=== PATIENT | male | born 1965 | race Caucasian/White ===

== ENCOUNTER 2019-01-12 16:40 | Emergency (ER) | payer OTHER ==
[2019-01-12 17:24] LABS: Absolute Lymphocytes (CBC) 2.8 K/uL (0.7-4.9); Absolute Monocytes 1.1 K/uL (0.1-1.3); Absolute Neutrophil 6.7 K/uL (1.8-8.0); Basophils % 0.6 % (0-1.3); Eosinophils % 0.8 % (0-4.4); Hematocrit 46.4 % (39.6-49.0); Lymphocytes % 25.9 % (15.3-44.8); MPV 9.4 fL (7.6-11.3); Monocytes % 10.4 % (3.3-12.3); RBC Red Blood Cell Count 5.49 M/uL (4.33-5.43)
[2019-01-12] MEDS ORDERED: ONDANSETRON 4 MG/2 ML VIAL ONE (17:25)
[2019-01-12] MEDS ORDERED: MORPHINE 4 MG/ML SYR ONE (17:25)
[2019-01-12 17:29] LABS: Protime INR 0.94
[2019-01-12 17:43] LABS: ALT/SGPT 103 U/L (12-78); AST/SGOT 65 U/L (15-37); Albumin 3.6 g/dL (3.4-5.0); Alkaline Phosphatase 92 U/L (45-117); BUN Blood Urea Nitrogen 16 mg/dL (7-18); Bicarbonate 26 mmol/L (21-32); Bilirubin Direct < 0.1 mg/dL (0-0.2); Bilirubin Total 0.5 mg/dL (0.2-1.0); Glucose Level 104 mg/dL (74-106); Lipase 77 U/L (73-393); NT PRO-BNP 19 pg/mL (<125); Potassium 3.9 mmol/L (3.5-5.1); Protein, Total 7.6 g/dL (6.4-8.2); Sodium Level 139 mmol/L (136-145); Troponin (Emerg Dept Use Only) < 0.02 ng/mL (0.0-0.045)
--- NOTE | 2019-01-12 19:09 | RAD REPORT ---
EXAM DESCRIPTION: Gumaro Single View01/12/2019 5:14 pm CLINICAL HISTORY: Chest pain COMPARISON: none FINDINGS: Left basilar calcified granuloma. The right lung appears clear of acute infiltrate. The heart is normal size IMPRESSION: No acute abnormalities displayed
--- NOTE | 2019-01-12 19:22 | RAD REPORT ---
EXAM DESCRIPTION: CT - Abdomen Pelvis W Contrast - 01/12/2019 6:59 pm CLINICAL HISTORY: Abdominal pain. Left lower quadrant pain COMPARISON: None. TECHNIQUE: Computed axial tomography of the abdomen and pelvis was obtained. 100 cc Isovue-300 is ad ministered intravenously. Oral contrast was given. All CT scans are performed using dose optimization technique as appropriate and may include automated exposure control or mA/KV adjustment according to patient size. FINDINGS: The liver, pancreas, adrenals and kidneys appear unremarkable. Splenic granulomata There is no evidence of diverticulitis Stranding is present within the fat of the left upper quadrant near the spleen. Small left inguinal hernia contains fat Gallstones are present. Gallbladder wall does not appear thickened IMPRESSION: Cholelithiasis without cholecystitis Mild to moderate stranding within the fat of the left upper quadrant may be secondary to an infarct. It is recommended that the patient have a followup left upper quadrant ultrasound in 1 month for re-e valuation
[2019-01-12] MEDS ORDERED: FENTANYL CITR 100 MCG/2 ML ONE (19:37)
--- NOTE | 2019-01-12 20:16 | EDPHYS ---
Physician Documentation [facility] Name: Fish Bustamante Age: 53 yrs Sex: Male : 1965 Arrival Date: 01/12/2019 Time: 16:43 Bed 20 Private MD: Fish Perez ED Physician Ivan Farley HPI: 01/12 17:05 This 53 yrs old Male presents to ER via Ambulatory with complaints of cp Abdominal Pain. 17:05 The patient presents with abdominal pain in the left upper quadrant, in the left lower cp quadrant. Onset: The symptoms/episode began/occurred 3 day(s) ago. The symptoms radiate to chest. Associated signs and symptoms: Pertinent positives: chest pain, Pertinent negatives: blood in stools, constipation, diarrhea, dysuria, fever, testicular pain, vomiting. Modifying factors: the symptoms are aggravated by palpation. Historical: - Allergies: 16:46 No Known Allergies; sv - PMHx: 16:46 None; sv - PSHx: 16:46 Appendectomy; sv - Immunization history:: Adult Immunizations up to date. - Social history:: Smoking status: Patient/guardian denies using tobacco. - Ebola Screening: : No symptoms or risks identified at this time. ROS: 17:10 Constitutional: Negative for body aches, chills, fever, poor PO intake. cp 17:10 Eyes: Negative for injury, pain, redness, and discharge. cp 17:10 ENT: Negative for drainage from ear(s), ear pain, sore throat, difficulty swallowing, difficulty handling secretions. 17:10 Cardiovascular: Positive for chest pain, of the left side of chest, Negative for edema, palpitations. 17:10 Respiratory: Negative for cough, shortness of breath, wheezing. 17:10 Abdomen/GI: Positive for abdominal pain, of the left upper quadrant and left lower quadrant, Negative for vomiting, diarrhea, constipation, abdominal distension, black/tarry stool, rectal bleeding. 17:10 Back: Negative for injury or acute deformity, pain at rest, pain with movement. 17:10 : Negative for urinary symptoms, testicular pain 17:10 Skin: Negative for diaphoresis, rash. 17:10 Neuro: Negative for altered mental status, dizziness, headache, syncope, weakness. 17:10 All other systems are negative. Exam: 17:15 Constitutional: The patient appears in no acute distress, alert, awake, cp non-diaphoretic, non-toxic, well developed, well nourished. 17:15 Head/Face: Normocephalic, atraumatic. Eyes: Pupils equal round and reactive to light, cp extra-ocular motions intact. Lids and lashes normal. Conjunctiva and sclera are non-icteric and not injected. Cornea within normal limits. Periorbital areas with no swelling, redness, or edema. ENT: Nares patent. No nasal discharge, no septal abnormalities noted. Tympanic membranes are normal and external auditory canals are clear. Oropharynx with no redness, swelling, or masses, exudates, or evidence of obstruction, uvula midline. Mucous membranes moist. Chest/axilla: Normal chest wall appearance and motion. Nontender with no deformity. No lesions are appreciated. 17:15 Cardiovascular: Rate: tachycardic, Rhythm: regular, Heart sounds: murmur, not appreciated, Edema: is not appreciated, JVD: is not appreciated. 17:15 Respiratory: the patient does not display signs of respiratory distress, Respirations: normal, no use of accessory muscles, no retractions, no splinting, no tachypnea, labored breathing, is not present, Breath sounds: are clear throughout, no decreased breath sounds, no stridor, no wheezing. 17:15 Abdomen/GI: Inspection: abdomen appears normal, Bowel sounds: active, all quadrants, Palpation: soft, in all quadrants, moderate abdominal tenderness, in the left upper quadrant and left lower quadrant, rebound tenderness, is not appreciated, voluntary guarding, is elicited in the left upper quadrant and left lower quadrant. 17:15 Back: pain, is absent, ROM is normal. 17:15 Skin: cellulitis, is not appreciated, no rash present. 20:14 Abdomen/GI: Inspection: abdomen appears normal, Bowel sounds: normal, in all quadrants, kb Palpation: soft, in all quadrants, mild abdominal tenderness, in the left lower quadrant, moderate abdominal tenderness, in the left upper quadrant. Vital Signs: 16:46 BP 144 / 93; Pulse 108; Resp 20; Temp 98.8; Pulse Ox 95% ; Weight 81.65 kg; Height 5 sv ft. 9 in. (175.26 cm); Pain 4/10; 17:00 BP 108 / 63; Pulse 89; Resp 18; Pulse Ox 99% on R/A; em 19:45 BP 129 / 75; Pulse 98; Resp 20; Pulse Ox 95% on R/A; ea 20:30 BP 130 / 68; Pulse 80; Resp 18; Pulse Ox 99% ; ea 16:46 Body Mass Index 26.58 (81.65 kg, 175.26 cm) sv MDM: 17:00 Patient medically screened. violette 17:00 Differential diagnosis: bowel obstruction, cholecystitis, Cholelithiasis, cp diverticulitis, gastritis, non-specific abd pain, pancreatitis, Ureterolithiasis, urinary tract infection, colitis. 18:48 Data reviewed: vital signs, nurses notes, lab test result(s), EKG. cp 20:01 ED course: D/w Dr. Olivo, confirmed the fat infarct in that region is a non-emergent kdr finding. Advised that patient could be safely discharged with follow-up as recommended by Dr. Farias. The patient is to return if his pain worsens or for any other concerns.. 20:14 Counseling: I had a detailed discussion with the patient and/or guardian regarding: the kb historical points, exam findings, and any diagnostic results supporting the discharge/admit diagnosis, lab results, radiology results, the need for outpatient follow up, a family practitioner, to return to the emergency department if symptoms worsen or persist or if there are any questions or concerns that arise at home. 20:14 ED course: Pt educated to follow up with PCP regarding fat infarct and to have follow kb up US in 1 month per radiologist recommendation. Pt to return for worsening symptoms. . 01/12 16:57 Order name: Basic Metabolic Panel; Complete Time: 18:45 cp 01/12 18:46 Interpretation: Normal except: CL 108; GFR 58. cp 01/12 16:57 Order name: CBC with Diff; Complete Time: 18:45 cp 01/12 18:46 Interpretation: Normal except: RBC 5.49. cp 01/12 16:57 Order name: LFT's; Complete Time: 18:45 cp 01/12 16:57 Order name: Magnesium; Complete Time: 18:45 cp 01/12 16:57 Order name: NT PRO-BNP; Complete Time: 18:45 cp 01/12 16:57 Order name: PT-INR; Complete Time: 18:45 cp 03/15 16:57 Order name: Troponin (emerg Dept Use Only); Complete Time: 18:45 cp 01/12 16:57 Order name: XRAY Chest (1 view); Complete Time: 19:10 cp 01/12 16:57 Order name: Lipase; Complete Time: 18:45 cp 01/12 16:57 Order name: CT Abd/Pelvis - W/Contrast: give oral contrast; Complete Time: 19:26 cp 01/12 16:57 Order name: EKG; Complete Time: 16:58 cp 01/12 16:57 Order name: Cardiac monitoring; Complete Time: 17:07 cp 01/12 16:57 Order name: EKG - Nurse/Tech; Complete Time: 17:07 cp 01/12 16:57 Order name: IV Saline Lock; Complete Time: 17:07 cp 01/12 16:57 Order name: Labs collected and sent; Complete Time: 17:07 cp 01/12 16:57 Order name: O2 Per Protocol; Complete Time: 17:07 cp 01/12 16:57 Order name: O2 Sat Monitoring; Complete Time: 17:07 cp Administered Medications: 17:15 Drug: morphine 4 mg Route: IVP; Site: right antecubital; aa5 19:15 Follow up: Response: No adverse reaction ea 17:15 Drug: Zofran 4 mg Route: IVP; Site: right antecubital; aa5 19:15 Follow up: Response: No adverse reaction ea 19:29 Drug: fentaNYL (PF) 50 mcg Route: IVP; Site: right antecubital; ea 20:00 Follow up: Response: No adverse reaction; Pain is decreased ea 20:32 Drug: Isabella (7.5 mg-325 mg) 1 tabs Route: PO; ea 20:34 Follow up: Response: Medication administered at discharge. ea Disposition: 23:35 Co-signature as Attending Physician, Ivan Farley MD I agree with the assessment and kdr plan of care. Disposition: 01/12/19 20:16 Discharged to Home. Impression: Generalized abdominal pain. - Condition is Stable. - Discharge Instructions: Abdominal Pain, Adult, [id number]. - Prescriptions for Tylenol- Codeine #3 300-30 mg Oral Tablet - take 1 tablet by ORAL route every 6 hours As needed; 15 tablet. - Medication Reconciliation Form, Thank You Letter, Antibiotic Education, Prescription Opioid Use form. - Follow up: Emergency Department; When: As needed; Reason: Worsening of condition. Follow up: Fish Perez MD; When: 2 - 3 days; Reason: Recheck today's complaints, Continuance of care, Re-evaluation by your physician. Signatures: Dispatcher [employer] EDMS Tavo Loeraistin, SEROLOGY TECHNICIAN-C SEROLOGY TECHNICIAN-Ckb Betzy Raza, RN RN Sree Ellison MD MD cha Rittger, Kevin, MD MD kdr Calderon, Audri RN RN aa5 Sree Adhikari PA PA cp Antunez, Elena, RN RN ea Corrections: (The following items were deleted from the chart) 20:50 20:16 01/12/2019 20:16 Discharged to Home. Impression: Generalized abdominal pain. ea Condition is Stable. Forms are Medication Reconciliation Form, Thank You Letter, Antibiotic Education, Prescription Opioid Use. Follow up: Emergency Department; When: As needed; Reason: Worsening of condition. Follow up: Fish Perez; When: 2 - 3 days; Reason: Recheck today's complaints, Continuance of care, Re-evaluation by your physician. kb
--- NOTE | 2019-01-12 20:16 | ER ---
Nurse's Notes [facility] Name: Fish Bustamante Age: 53 yrs Sex: Male : 1965 Arrival Date: 01/12/2019 Time: 16:43 Bed 20 Private MD: Fish Perez Diagnosis: Generalized abdominal pain Presentation: 01/12 16:45 Presenting complaint: Patient states: LLQ pain x 3 days, denies n/v/d. Transition of sv care: patient was not received from another setting of care. Onset of symptoms was January 09, 2019. Care prior to arrival: None. 16:45 Method Of Arrival: Ambulatory sv 16:45 Acuity: AZEEM 3 sv 17:00 Initial Sepsis Screen: Does the patient meet any 2 criteria? HR > 90 bpm. No. Patient's em initial sepsis screen is negative. Does the patient have a suspected source of infection? No. Patient's initial sepsis screen is negative. Historical: - Allergies: 16:46 No Known Allergies; sv - PMHx: 16:46 None; sv - PSHx: 16:46 Appendectomy; sv - Immunization history:: Adult Immunizations up to date. - Social history:: Smoking status: Patient/guardian denies using tobacco. - Ebola Screening: : No symptoms or risks identified at this time. Screenin:00 Abuse screen: Denies threats or abuse. Nutritional screening: No deficits noted. em Tuberculosis screening: No symptoms or risk factors identified. Fall Risk None identified. Assessment: 17:00 General: Appears in no apparent distress. comfortable, Behavior is calm, cooperative, em appropriate for age, Denies fever. Pain: Complains of pain in left upper quadrant Pain currently is 3 out of 10 on a pain scale. Quality of pain is described as pressure, Pain began 2-3 days ago. Neuro: Level of Consciousness is awake, alert, obeys commands, Oriented to person, place, time, situation. Cardiovascular: Capillary refill < 3 seconds Patient's skin is warm and dry. Respiratory: Airway is patent Respiratory effort is even, unlabored, Respiratory pattern is regular, symmetrical. GI: Abdomen is round Bowel sounds present X 4 quads. Guarding noted X 4 quads. Patient currently denies diarrhea, nausea, vomiting. Derm: Skin is intact, is healthy with good turgor, Skin is pink, warm \T\ dry. Musculoskeletal: Range of motion: intact in all extremities. 17:00 Reassessment: I agree with assessment completed by José Miguel Merrill LVN . aa5 18:00 Reassessment: Patient appears in no apparent distress at this time. Patient and/or em family updated on plan of care and expected duration. Pain level reassessed. Patient is alert, oriented x 3, equal unlabored respirations, skin warm/dry/pink. rates pain 2/10 Patient states feeling better. 19:15 General: Appears uncomfortable, Behavior is calm, cooperative, appropriate for age. ea Pain: Complains of pain in abdomen. Neuro: Level of Consciousness is awake, alert, obeys commands, Oriented to person, place, time, situation. Cardiovascular: Patient's skin is warm and dry. Respiratory: Airway is patent Respiratory effort is even, unlabored, Respiratory pattern is regular, symmetrical. GI: Abdomen is round Guarding noted X 4 quads. Derm: Skin is intact, Skin is pink, warm \T\ dry. 20:45 Reassessment: Patient and/or family updated on plan of care and expected duration. Pain ea level reassessed. Patient is alert, oriented x 3, equal unlabored respirations, skin warm/dry/pink. Discharge instruction given to patient, verbalized the understanding of instruction. Vital Signs: 16:46 BP 144 / 93; Pulse 108; Resp 20; Temp 98.8; Pulse Ox 95% ; Weight 81.65 kg; Height 5 sv ft. 9 in. (175.26 cm); Pain 4/10; 17:00 BP 108 / 63; Pulse 89; Resp 18; Pulse Ox 99% on R/A; em 19:45 BP 129 / 75; Pulse 98; Resp 20; Pulse Ox 95% on R/A; ea 20:30 BP 130 / 68; Pulse 80; Resp 18; Pulse Ox 99% ; ea 16:46 Body Mass Index 26.58 (81.65 kg, 175.26 cm) sv ED Course: 16:43 Patient arrived in ED. rg4 16:44 Fish Perez MD is Private Physician. rg4 16:46 Triage completed. sv 16:46 Arm band placed on. sv 16:49 [facility]. cp 16:49 Sree Danielle MD is Attending Physician. cp 16:49 Verna Loera FNP-C is PHCP. kb 17:00 Patient has correct armband on for positive identification. Placed in gown. Bed in low em position. Call light in reach. hospital monitor on. Pulse ox on. NIBP on. 17:03 José Miguel Merrill LVN is Primary Nurse. em 17:04 Oral contrast given. jg6 17:07 Initial lab(s) drawn, by ky, sent to lab. Inserted saline lock: 20 gauge in right ms antecubital area, using aseptic technique. Blood collected. 17:12 EKG done, by technical support consultant. reviewed by Sree LYNCH. sm3 17:15 XRAY Chest (1 view) In Process Unspecified. EDMS 18:[address] via wheelchair. jg6 18:50 PHCP role handed off by Sree Adhikari PA kb 18:50 Verna Loera FNP-C is PHCP. kb 18:59 CT completed. Patient tolerated procedure well. Patient moved back from CT. vm2 19:00 CT Abd/Pelvis - W/Contrast: give oral contrast In Process Unspecified. EDMS 19:56 Attending Physician role handed off by Sree Danielle MD kdr 19:56 Ivan Farley MD is Attending Physician. kdr 20:15 Fish Perez MD is Referral Physician. kb 20:35 No provider procedures requiring assistance completed. IV discontinued, intact, ea bleeding controlled, No redness/swelling at site. Pressure dressing applied. Administered Medications: 17:15 Drug: morphine 4 mg Route: IVP; Site: right antecubital; aa5 19:15 Follow up: Response: No adverse reaction ea 17:15 Drug: Zofran 4 mg Route: IVP; Site: right antecubital; aa5 19:15 Follow up: Response: No adverse reaction ea 19:29 Drug: fentaNYL (PF) 50 mcg Route: IVP; Site: right antecubital; ea 20:00 Follow up: Response: No adverse reaction; Pain is decreased ea 20:32 Drug: Wallace (7.5 mg-325 mg) 1 tabs Route: PO; ea 20:34 Follow up: Response: Medication administered at discharge. ea Outcome: 20:16 Discharge ordered by . kb 20:37 Discharged to home ambulatory, with significant other. ea 20:37 Condition: improved 20:37 Discharge instructions given to patient, Instructed on discharge instructions, follow up and referral plans. medication usage, Demonstrated understanding of instructions, follow-up care, medications, Prescriptions given X 1. 20:50 Patient left the ED. ea Signatures: Dispatcher [employer] EDMS Verna Loera, INSTRUMENT FITTER-C INSTRUMENT FITTER-CkBetzy Page, RN RN Ivan Jeong MD MD kdr Munoz, Edgar, CONVENTION SERVICES DIRECTOR CONVENTION SERVICES DIRECTOR Billie Vasquez ms Metz, Eve, RN RN [email or web address] Sree Adhikari PA PA cp Garcia, Rubi rg4 Niurka Palmer2 Sindy Rader RN RN ea Montes, Shakira 3 Hawa Richards6
[2019-01-12] MEDS ORDERED: HYDROCODONE/APAP 7.5/325 MG TAB ONE (20:43)
--- NOTE | 2019-01-13 09:23 | EKG ---
Test Date: 2019-01-12 Test Time: 17:02:20 Senior Hris Analyst: KIM MEASUREMENT RESULTS: Intervals: Rate: 99 AZ: 138 QRSD: 84 QT: 328 QTc: 420 Heth: P: 72 AZ: 138 QRS: 82 T: 45 INTERPRETIVE STATEMENTS: Normal sinus rhythm Possible Left atrial enlargement Borderline ECG No previous ECG available for comparison Electronically Signed On 01-13-19 09:21:30 CDT by Riccardo Burgos
== END 2019-01-12 20:50 | disposition home or self-care (01) ==
LOC: ER 16:40
DX: R10.84 Generalized abdominal pain (principal)
CPT/HCPCS: 36415; 71045; 74177; 80048; 80076; 83690; 83735; 83880; 84484; 85025; 85610; 93005; 96374; 96375; 99285; J2405; J3010; Q9967

== ENCOUNTER 2024-04-28 13:07 | Inpatient (IN) | payer OTHER ==
[2024-04-28 13:56] LABS: Absolute Lymphocytes (CBC) 1.4 K/uL (0.7-4.9); Absolute Monocytes 0.8 K/uL (0.1-1.3); Absolute Neutrophil 5.7 K/uL (1.8-8.0); Basophils % 0.5 % (0-1.3); Eosinophils % 0.3 % (0-4.4); Hematocrit 47.2 % (39.6-49.0); Hemoglobin 15.7 g/dL (13.6-17.9); Lymphocytes % 17.4 % (15.3-44.8); MCH 28.9 pg (27.0-35.0); MCHC 33.3 g/dL (32.0-36.0); MCV 86.8 fL (80-100); MPV 8.5 fL (7.6-11.3); Monocytes % 9.9 % (3.3-12.3); Neutrophils % 71.9 % (41.7-73.7); Nucleated Red Blood Cells % 0.3 % (0-0); Platelets 197 thou/uL (152-406); RBC Red Blood Cell Count 5.44 M/uL (4.33-5.43); Red Cell Distribution Width 14.6 % (12.1-15.2)
[2024-04-28 14:00] LABS: PT Prothrombin Time 12.4 SECONDS (9.4-12.5); Protime INR 1.13
[2024-04-28 14:13] LABS: Albumin 3.5 g/dL (3.4-5.0); Anion Gap 9.4 mEq/L (5.0-15.0); Bilirubin Direct 0.2 mg/dL (0-0.2); Bilirubin Indirect, Calculated 0.4 mg/dL (0.2-0.8); Bilirubin Total 0.6 mg/dL (0.2-1.0); Globulin 3.5 g/dL (2.3-3.5); Magnesium 2.2 mg/dL (1.6-2.4); Potassium 3.4 mEq/L (3.5-5.1)
[2024-04-28 14:18] LABS: Troponin High Sensitivity 315.4 pg/mL (<58.9)
--- NOTE | 2024-04-28 14:18 | RAD REPORT ---
EXAM DESCRIPTION: Gumaro Single View04/28/2024 1:50 pm CLINICAL HISTORY: CHEST PAIN COMPARISON: Chest Single View dated 01/12/2019 TECHNIQUE: Portable AP view of the chest. FINDINGS: The lungs are clear. 9 mm left central pulmonary opacity is stable. No pneumothorax or ef fusion. The cardiomediastinal contours are unremarkable. IMPRESSION: No acute cardiopulmonary process. Stable left central 9 mm pulmonary opacity, may repre sent a calcified granuloma.
[2024-04-28] MEDS ORDERED: ASPIRIN 81 MG CHEWABLE TABLET ONE (15:01)
--- NOTE | 2024-04-28 15:49 | RAD REPORT ---
EXAM DESCRIPTION: CT - Head Brain Wo Cont - 04/28/2024 2:56 pm CLINICAL HISTORY: Headache COMPARISON: Angio Aorta For Dissection dated 04/28/2024 TECHNIQUE: Noncontrast head CT images were obtained without IV contrast. Multiplanar reformats were generated and reviewed. All CT scans are performed using dose optimization technique as appropriate and may include automated exposure control or mA/KV adjustment according to patient size. FINDINGS: No intracranial hemorrhage, mass, or edema. Midline structures are unremarkable. Normal ventricular caliber for age. Rodriguez-white matter differentiation is preserved, without evidence of acute infarct. No abnormal extra- axial fluid collections. Mastoid air cells are well aerated. Right maxillary sinus wall thickening suggesting sequelae of yard conductor renetta sinusitis, with an air-fluid level. No acute bony findings. IMPRESSION: No evidence of an acute intracranial process. Right maxillary sinus air-fluid level.
--- NOTE | 2024-04-28 16:07 | RAD REPORT ---
EXAM DESCRIPTION: CT - Angio Aorta For Dissection - 04/28/2024 3:04 pm CLINICAL HISTORY: CP, tachycardia;Dissection COMPARISON: Chest Single View dated 04/28/2024 TECHNIQUE: Thin axial CT images of the chest, abdomen, and pelvis were obtained during administratio n of mL Isovue 370 IV contrast. Sagittal and coronal reconstructions as well as maximal intensity pro jection reconstruction were generated and reviewed per an aortic angiography protocol. All CT scans are performed using dose optimization technique as appropriate and may include automated exposure control or mA/KV adjustment according to patient size. FINDINGS: Aorta is normal in diameter with no dissection or other acute aortic findings. The aorta i s normal in caliber throughout. Mild atherosclerotic plaque formation along the thoracic aorta. Moder ate to advanced mixed calcified and noncalcified atherosclerotic plaque formation along the infrarena l abdominal aorta with luminal irregularity. Long segment of non opacification and caliber attenuatio n involving the origin of the left external iliac artery, to its distal aspect, just proximal to the level of the inguinal ligament. The left iliofemoral junction and visualized proximal femoral arterie s are patent. Pulmonary arteries are normal as well. No mass or infiltrate in the lung parenchyma. Densely calcified left upper lobe anteriorly situated 1 cm granuloma. Mild centrilobular emphysematous changes. No pleural thickening, pleural effusion or p neumothorax. No abnormal mediastinal or hilar mass or lymphadenopathy seen. No chest wall mass or abnormal axillar y lymphadenopathy. Celiac axis and SMA show no suspicious findings. Renal arteries are patent with mild focal narrowing at their origins. XAVIER is patent although shows severe stenosis focally at its origin. Multiple cholesterol containing stones in the gallbladder. Small left inguinal hernia containing fat. Solid abdominal viscera and bowel show no other significant findings. No mass or abnormal lymphadeno hakeem. IMPRESSION: No acute abnormalities on CT angiogram of the aorta. Moderate to advanced atherosclerotic plaque along the infrarenal abdominal aorta with with luminal ir regularity. 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 Other incidental findings as above.
--- NOTE | 2024-04-28 16:32 | EDPHYS ---
Physician Documentation [facility] Name: Fish Bustamante Age: 59 yrs Sex: Male : 1965 Arrival Date: 04/28/2024 Time: 13:07 Bed 4 Private MD: ED Physician Guru Alvarez HPI: 04/28 13:34 This 59 yrs old Male presents to ER via Ambulatory with complaints of Blood Pressure sb4 Problem. 13:34 patient believes that his blood pressure has been spiking the past 6 weeks. he hasn't sb4 checked it but he states he can tell because his face gets red and he gets a headache. he denies any prior diagnosis of hypertension or taking any antihypertensives. he denies any chest pain or shortness of breath. Historical: - Allergies: 13:27 No Known Allergies; cm10 - Home Meds: 13:27 None [Active]; cm10 - PMHx: 13:27 Cancer- head; cm10 - PSHx: 13:27 Appendectomy; cm10 - Immunization history:: Adult Immunizations up to date. - Infectious Disease History:: Denies. - Social history:: Smoking status: Patient reports the use of cigarette tobacco products, denies chronic smoking, but will smoke occasionally. ROS: 13:34 Constitutional: Negative for fever, chills, and weight loss, sb4 13:34 All other systems are negative, Exam: 13:34 Head/Face: Normocephalic, atraumatic. Eyes: Extra-ocular motions intact. Periorbital sb4 areas with no swelling, redness, or edema. ENT: Mucous membranes moist. Respiratory: Lungs have equal breath sounds bilaterally, clear to auscultation and percussion. No rales, rhonchi or wheezes noted. No increased work of breathing, no retractions or nasal flaring. Abdomen/GI: Soft, non-tender, no distension. Skin: Warm, dry with normal turgor. Normal color with no rashes, no lesions, and no evidence of cellulitis. MS/ Extremity: Pulses equal, no cyanosis. Neurovascular intact. Full, normal range of motion. 13:34 Constitutional: The patient appears alert, awake, anxious, tearful 13:34 Cardiovascular: Rate: tachycardic, Rhythm: regular, Vital Signs: 13:25 BP 203 / 95; Pulse 135; Resp 18; Temp 99.1; Pulse Ox 96% on R/A; Weight 79.38 kg; cm10 Height 5 ft. 9 in. ; Pain 6/10; 14:04 BP 130 / 79; Pulse 112; Resp 19; Pulse Ox 98% on R/A; ld1 17:03 Pulse 100; Resp 17; Pulse Ox 98% on R/A; ld1 13:25 Body Mass Index 25.84 (79.38 kg, 175.26 cm) cm10 13:25 Pain Scale: Adult cm10 MDM: 13:17 Patient medically screened. sb4 16:30 Data reviewed: vital signs, nurses notes, lab test result(s), EKG, radiologic studies, sb4 and as a result, I will admit patient. Counseling: I had a detailed discussion with the patient and/or guardian regarding the historical points, exam findings, and any diagnostic results supporting the discharge/admit diagnosis, the presence of at least one elevated blood pressure reading (>120/80) during this emergency department visit, lab results, radiology results, the need for further work-up and treatment in the hospital. 04/28 13:33 Order name: Basic Metabolic Panel; Complete Time: 14:18 sb4 04/28 13:33 Order name: CBC with Diff; Complete Time: 14:02 sb4 04/28 13:33 Order name: LFT's; Complete Time: 14:18 sb4 04/28 13:33 Order name: Magnesium; Complete Time: 14:18 sb4 04/28 13:33 Order name: NT PRO-BNP; Complete Time: 14:18 sb4 04/28 13:33 Order name: PT-INR; Complete Time: 14:00 sb4 04/28 13:33 Order name: Troponin HS; Complete Time: 14:18 sb4 04/28 16:56 Order name: CBC with Automated Diff EDMS 04/28 16:56 Order name: CBC with Automated Diff EDMS 04/28 16:56 Order name: Comprehensive Metabolic Panel EDMS 04/28 16:56 Order name: Comprehensive Metabolic Panel EDMS 04/28 16:56 Order name: Lipid Profile EDMS 04/28 16:56 Order name: Lipid Profile EDMS 04/28 16:56 Order name: Magnesium EDMS 04/28 16:56 Order name: Magnesium EDMS 04/28 16:56 Order name: Phosphorus EDMS 04/28 16:56 Order name: Phosphorus EDMS 04/28 16:56 Order name: Troponin High Sensitivity EDMS 04/28 16:56 Order name: Troponin High Sensitivity EDMS 04/28 16:56 Order name: Troponin High Sensitivity EDMS 04/28 16:56 Order name: Troponin High Sensitivity EDMN 04/28 13:33 Order name: XRAY Chest (1 view); Complete Time: 14:18 sb4 04/28 14:20 Order name: CT Aorta for Dissection; Complete Time: 16:08 sb4 04/28 14:53 Order name: Head Brain Wo Cont; Complete Time: 15:55 EDMS 04/28 16:56 Order name: Echo with Doppler EDMS 04/28 16:56 Order name: Echo with Doppler EDMS 04/28 16:56 Order name: CONS Physician Consult EDMN 04/28 13:33 Order name: Cardiac monitoring; Complete Time: 13:39 sb4 04/28 13:33 Order name: EKG - Nurse/Tech; Complete Time: 13:36 sb4 04/28 13:33 Order name: IV Saline Lock; Complete Time: 14:04 sb4 04/28 13:33 Order name: Labs collected and sent; Complete Time: 14:04 sb4 04/28 13:33 Order name: O2 Per Protocol; Complete Time: 13:39 sb4 04/28 13:33 Order name: O2 Sat Monitoring; Complete Time: 13:39 sb4 EC:38 Rate is 130 beats/min. Rhythm is regular, Sinus tachycardia. TX interval is normal at sb4 128 msec. QRS interval is normal at 86 msec. QT interval is normal at 302 msec. No Q waves. T waves are Normal. Clinical impression: NSR w/ Non-specific ST/T Changes. Interpreted by me. Reviewed by me. Administered Medications: 15:19 Drug: Aspirin PO Chewable Tablet 324 mg PO once; 81 mg tablets x 4 Route: PO; ld1 17:03 Drug: Enoxaparin Sub-Q 1 mg/kg Sub-Q once Route: Sub-Q; Site: left upper arm; ld1 Disposition: 18:10 Co-signature as Attending Physician, Guru Alvarez MD I reviewed the patient's care rn provided by the Advanced Practice Provider and agree with the diagnosis and treatment plan. Disposition Summary: 04/28/24 16:31 Hospitalization Ordered Notes: Hospitalization Status: Inpatient Admission sb4 Provider: Antonella Carrasco4 Location: Telemetry/MedSurg (Inpatient) sb4 Condition: Fair sb4 Problem: new sb4 Symptoms: are unchanged sb4 Bed/Room Type: Standard sb4 Room Assignment: 208(04/28/24 17:04) eb Diagnosis - Subsequent non-ST elevation (NSTEMI) myocardial infarction sb4 Forms: - Medication Reconciliation Form sb4 - SBAR form sb4 - Leadership Thank You Letter sb4 Signatures: Dispatcher [employer] EDMS Guru Alvarez MD MD rn Gladis Dallas Lauren, RN RN ld1 Lynn Swann PA-C PAHernandez sb4 Beth Farmer RN RN cm10 Corrections: (The following items were deleted from the chart) 13:27 13:27 PMHx: None; cm10 cm10 13:27 13:27 PSHx: None; cm10 cm10 13:34 13:34 BASIC METABOLIC PANEL+C.LAB.BRZ ordered. EDMS EDMS 13:34 13:34 CBC+H.LAB.BRZ ordered. EDMS EDMS 13:34 13:34 HEPATIC FUNCTION+C.LAB.BRZ ordered. EDMS EDMS 13:34 13:34 MAGNESIUM+C.LAB.BRZ ordered. EDMS EDMS 13:34 13:34 PROBNP+C.LAB.BRZ ordered. EDMS EDMS 13:34 13:34 PROTIME (+INR)+COAG.LAB.BRZ ordered. EDMS EDMS 13:34 13:34 Troponin High Sensitivity+C.LAB.BRZ ordered. EDMS EDMS 13:34 13:34 Chest Single View+RAD.RAD.BRZ ordered. EDMS EDMS 17:04 16:31 sb4 eb
--- NOTE | 2024-04-28 16:32 | ER ---
Nurse's Notes [facility] Name: Fish Bustamante Age: 59 yrs Sex: Male : 1965 Arrival Date: 04/28/2024 Time: 13:07 Bed 4 Private MD: Diagnosis: Subsequent non-ST elevation (NSTEMI) myocardial infarction Presentation: 04/28 13:25 Chief complaint: Patient states: High blood pressure with headache, chest pain and cm10 shortness of breath onset 1.5 months ago and has been getting worse. Coronavirus screen: Client denies travel out of the [place] in the last 14 days. At this time, the client does not indicate any symptoms associated with coronavirus-19. Ebola Screen: Patient denies travel to an Ebola-affected area in the 21 days before illness onset. No symptoms or risks identified at this time. Initial Sepsis Screen: Does the patient meet any 2 criteria? HR > 90 bpm. Does the patient have a suspected source of infection? No. Patient's initial sepsis screen is negative. Risk Assessment: Do you want to hurt yourself or someone else? Patient reports no desire to harm self or others. Onset of symptoms is unknown. 13:25 Method Of Arrival: Ambulatory cm10 13:25 Acuity: AZEEM 2 cm10 Triage Assessment: 13:27 General: Appears in no apparent distress. comfortable, Behavior is calm, cooperative. cm10 Neuro: No deficits noted. Level of Consciousness is awake, alert, obeys commands, Oriented to person, place, time, situation, Appropriate for age. Respiratory: No deficits noted. Airway is patent Respiratory effort is even, unlabored, Respiratory pattern is regular, symmetrical. Historical: - Allergies: 13:27 No Known Allergies; cm10 - Home Meds: 13:27 None [Active]; cm10 - PMHx: 13:27 Cancer- head; cm10 - PSHx: 13:27 Appendectomy; cm10 - Immunization history:: Adult Immunizations up to date. - Infectious Disease History:: Denies. - Social history:: Smoking status: Patient reports the use of cigarette tobacco products, denies chronic smoking, but will smoke occasionally. Screenin:04 [facility] ED Fall Risk Assessment (Adult) History of falling in the last 3 months, ld1 including since admission No falls in past 3 months (0 pts) Confusion or Disorientation No (0 pts) Intoxicated or Sedated No (0 pts) Impaired Gait No (0 pts) Mobility Assist Device Used No (0 pt) Altered Elimination No (0 pt) Score/Fall Risk Level 0 - 2 = Low Risk. [facility] ED Fall Risk Assessment (Adult) Score/Fall Risk Level 0 - 2 = Low Risk Oriented to surroundings, Maintained a safe environment, Educated pt \T\ family on fall prevention, incl call for assistance when getting out of bed, Assessed \T\ reinforced patient's understanding of fall precautions, Provided non-skid footwear, Hourly rounding (assess needs \T\ fall precautionary measures) done, Used ambulatory aids as needed (educated on \T\ assisted with), Used gait belt as appropriate. [facility] ED Fall Risk Assessment (Adult) History of falling in the last 3 months, including since admission. Abuse screen: Denies threats or abuse. Denies injuries from another. Nutritional screening: No deficits noted. Tuberculosis screening: No symptoms or risk factors identified. Assessment: 14:04 General: Appears in no apparent distress. comfortable, Behavior is calm, cooperative, ld1 appropriate for age. Pain: Complains of pain in face Pain does not radiate. Pain currently is 5 out of 10 on a pain scale. at worst was 8 out of 10 on a pain scale. Quality of pain is described as sharp, throbbing, Pain began 2-3 days ago. Is intermittent. Neuro: Level of Consciousness is awake, alert, obeys commands, Oriented to person, place, time, situation. Cardiovascular: Capillary refill < 3 seconds Patient's skin is warm and dry. Respiratory: Airway is patent Respiratory effort is even, unlabored. GI: Abdomen is round non-distended. : No signs and/or symptoms were reported regarding the genitourinary system. EENT: No signs and/or symptoms were reported regarding the EENT system. Derm: No signs and/or symptoms reported regarding the dermatologic system. Musculoskeletal: No signs and/or symptoms reported regarding the musculoskeletal system. 14:46 Reassessment: Patient appears in no apparent distress at this time. No changes from ld1 previously documented assessment. Patient and/or family updated on plan of care and expected duration. Pain level reassessed. Patient is alert, oriented x 3, equal unlabored respirations, skin warm/dry/pink. 17:03 Reassessment: Patient appears in no apparent distress at this time. No changes from ld1 previously documented assessment. Patient and/or family updated on plan of care and expected duration. Pain level reassessed. Patient is alert, oriented x 3, equal unlabored respirations, skin warm/dry/pink. Vital Signs: 13:25 BP 203 / 95; Pulse 135; Resp 18; Temp 99.1; Pulse Ox 96% on R/A; Weight 79.38 kg; cm10 Height 5 ft. 9 in. ; Pain 6/10; 14:04 BP 130 / 79; Pulse 112; Resp 19; Pulse Ox 98% on R/A; ld1 17:03 Pulse 100; Resp 17; Pulse Ox 98% on R/A; ld1 13:25 Body Mass Index 25.84 (79.38 kg, 175.26 cm) cm10 13:25 Pain Scale: Adult cm10 ED Course: 13:10 Patient arrived in ED. ts1 13:13 Lynn Swann [facility]-C [facility]. sb4 13:13 Guru Alvarez MD is Attending Physician. sb4 13:27 Triage completed. cm10 13:27 Arm band placed on Patient placed in an exam room, on a stretcher, on staff registered nurse, cm10 on pulse oximetry. EKG completed in triage. Results shown to MD. 13:31 Patient has correct armband on for positive identification. Bed in low position. Call cm10 light in reach. Side rails up X 1. Client placed on continuous cardiac and pulse oximetry monitoring. NIBP monitoring applied. cdl company driver on. 13:31 EKG done, by ED staff, reviewed by Lynn Swann PA-C. cm10 13:40 Sheila Obrien, HARRISON is Primary Nurse. ld1 13:51 XRAY Chest (1 view) In Process Unspecified. EDMS 14:04 Inserted saline lock: 20 gauge in left forearm, using aseptic technique. Blood ld1 collected. 14:04 No provider procedures requiring assistance completed. ld1 14:57 Head Brain Wo Cont In Process Unspecified. EDMS 15:06 CT Aorta for Dissection In Process Unspecified. EDMS 16:31 Antonella Carrasco MD is Hospitalizing Provider. sb4 17:44 Patient admitted, IV remains in place. ld1 Administered Medications: 15:19 Drug: Aspirin PO Chewable Tablet 324 mg PO once; 81 mg tablets x 4 Route: PO; ld1 17:03 Drug: Enoxaparin Sub-Q 1 mg/kg Sub-Q once Route: Sub-Q; Site: left upper arm; ld1 Medication: 14:04 VIS not applicable for this client. ld1 Outcome: 16:31 Decision to Hospitalize by Provider. sb4 17:44 Admitted to Med/surg accompanied by tech, via wheelchair, ld1 17:44 Condition: stable 17:44 Instructed on the need for admit, 17:44 Patient left the ED. ld1 Signatures: Dispatcher [employer] EDMS Sheila Obrien RN RN ld1 Lynn Swann PASharonC PAHernandez sb4 Janneth Patino PAS PAS ts1 Beth Farmer RN RN cm10 Corrections: (The following items were deleted from the chart) 13:27 13:27 PMHx: None; cm10 cm10 13:27 13:27 PSHx: None; cm10 cm10
[2024-04-28] MEDS ORDERED: ACETAMINOPHEN 500 MG TAB PO PRN (16:49)
[2024-04-28] MEDS ORDERED: ONDANSETRON 4 MG/2 ML VIAL IV PRN (16:49)
[2024-04-28] MEDS ORDERED: ENOXAPARIN 80 MG/0.8 ML SQ ONE (16:53)
--- NOTE | 2024-04-28 16:57 | P.HP ---
Certification for Inpatient Patient admitted to: Inpatient With expected LOS: >2 Midnights Patient will require the following post-hospital care: None Practitioner: I am a practitioner with admitting privileges, knowledge of patient current condition, hospital course, and medical plan of care. Services: Services provided to patient in accordance with Admission requirements found in Title 42 Section 412.3 of the Code of Federal Regulations Patient History Date of Service: 04/28/24 Reason for admission: Uncontrolled hypertension/blurred vision/vertigo History of Present Illness: Patient is a 59-year-old gentleman comes to the hospital because his blood pressure has been uncontrolled. Patient also been having vertigo and diplopia. Patient presented to the emergency room for further evaluation. In the emergency room, patient was found to have an elevated troponin. Patient was admitted to the hospital for further evaluation. Otherwise, patient is fairly healthy. Patient denies any significant medical history. Patient had skin cancer because of being out in the sun. Otherwise, patient denies any other complaints. He is really concerned about his clinical symptoms that he has been fairly healthy until this vision symptoms started bothering him. The symptoms tend to wax and wane and he is also noticed that he is a little ataxic when they present. At this time, I will admit the patient to the hospital for further evaluation. Patient denies any chest pain. Allergies No Known Allergies Allergy (Unverified 04/28/24 18:08) Home Medications: NK [No Home Meds] 04/28/24 - Past Medical/Surgical History -: Hypertension -: Basal cell carcinoma -: Resection of basal cell - Family History Father Family History: Reviewed- Non-Contributory - Social History Smoking Status: Never smoker Alcohol use: No CD- Drugs: No Review of Systems 10-point ROS is otherwise unremarkable Physical Examination - Vital Signs Temperature: 98 F Blood Pressure: 140/80 Pulse: 80 Respirations: 18 Pulse Ox (%): 95 - Physical Exam General: Alert, In no apparent distress, Oriented x3 HEENT: Atraumatic, PERRLA, Mucous membr. moist/pink, EOMI, Sclerae nonicteric Neck: Supple, 2+ carotid pulse no bruit, No LAD, Without JVD or thyroid abnormality Respiratory: Clear to auscultation bilaterally, Normal air movement Cardiovascular: Regular rate/rhythm, Normal S1 S2, No murmurs Gastrointestinal: Normal bowel sounds, Soft and benign, Non-distended, No tenderness Musculoskeletal: No clubbing, No swelling, No tenderness Integumentary: No rashes Neurological: Normal gait, Normal speech, Normal strength at 5/5 x4 extr, Normal tone, Sensation intact, Cranial nerves 3-12 intact, Normal affect Lymphatics: No axilla or inguinal lymphadenopathy - Studies Laboratory Data (last 24 hrs) 04/28/24 04/28/24 04/28/24 13:48 13:48 13:48 WBC 8.00 Hgb 15.7 Hct 47.2 Plt Count 197 PT 12.4 INR 1.13 Sodium 139 Potassium 3.4 L BUN 14 Creatinine 1.15 Glucose 146 H Magnesium 2.2 Total Bilirubin 0.6 AST 21 ALT 31 Alkaline Phosphatase 71 Assessment & Plan - Problems (Diagnosis) (1) Non-ST elevated myocardial infarction (non-STEMI) Current Visit: Yes Status: Acute (2) Blurred vision Current Visit: Yes Status: Acute (3) Dizziness Current Visit: Yes Status: Acute (4) Ataxia Current Visit: Yes Status: Acute - Plan -High-sensitivity troponin -Cardiology consultation -Echocardiogram and cardiac catheterization in a.m. -Repeat EKG -MRI/MRA -Lipid profile -Rural Service Engineer regarding modifying risk for cardiac disease -Antiplatelet/statin Discharge Plan: Home Plan to discharge in: 24 Hours - Advance Directives Does patient have a Living Will: No Does patient have a Durable POA for Healthcare: No - Code Status/Comfort Care Code Status Assessed: Yes Code Status: Full Code Critical Care: No Time Spent Managing PTS Care (In Minutes): 45
[2024-04-28 18:29] VITALS: BMI 25.8
[2024-04-28] MEDS: POTASSIUM CL SA 10 MEQ TAB PO SCH (20:00)
[2024-04-28] MEDS: ATORVASTATIN 20 MG TAB PO SCH (20:01)
[2024-04-28] MEDS: METOPROLOL TAR 50 MG TAB PO SCH (20:01)
[2024-04-28] MEDS ORDERED: ENOXAPARIN 80 MG/0.8 ML SQ SCH (21:00)
[2024-04-29 06:18] LABS: Absolute Basophils 0.1 K/uL (0-0.5); Absolute Eosinophils 0.2 K/uL (0-0.5); Absolute Lymphocytes (CBC) 1.7 K/uL (0.7-4.9); Absolute Monocytes 0.9 K/uL (0.1-1.3); Absolute Neutrophil 3.6 K/uL (1.8-8.0); Basophils % 0.9 % (0-1.3); Eosinophils % 2.7 % (0-4.4); Hematocrit 45.9 % (39.6-49.0); Hemoglobin 15.3 g/dL (13.6-17.9); Lymphocytes % 27.1 % (15.3-44.8); MCHC 33.4 g/dL (32.0-36.0); MCV 86.9 fL (80-100); Monocytes % 13.5 % (3.3-12.3); Neutrophils % 55.8 % (41.7-73.7); Nucleated Red Blood Cells % 0.1 % (0-0); Platelets 183 thou/uL (152-406); RBC Red Blood Cell Count 5.28 M/uL (4.33-5.43); Red Cell Distribution Width 14.4 % (12.1-15.2)
[2024-04-29 06:40] LABS: Albumin 3.3 g/dL (3.4-5.0); Anion Gap 8.1 mEq/L (5.0-15.0); Bilirubin Total 0.6 mg/dL (0.2-1.0); Globulin 3.3 g/dL (2.3-3.5); Magnesium 2.3 mg/dL (1.6-2.4); Phosphorus 2.1 mg/dL (2.5-4.9); Potassium 4.1 mEq/L (3.5-5.1); Protein, Total 6.6 g/dL (6.4-8.2)
[2024-04-29 07:03] LABS: Troponin High Sensitivity 247.3 pg/mL (<58.9)
--- NOTE | 2024-04-29 07:06 | P.PN ---
Date of Service: 04/29/24 Subjective, Presented with uncontrolled hypertension, noted to have elevated troponin, Lovenox 1 mg/kg every 12 No acute complaints, no reported chest pain Review of Systems 10-point ROS is otherwise unremarkable Physical Examination - Physical Exam General: In no apparent distress, afebrile HEENT: Atraumatic, PERRLA, Mucous membr. moist/pink, EOMI, Sclerae nonicteric Neck: Supple, 2+ carotid pulse no bruit, No LAD, Without JVD or thyroid abnormality Respiratory: Clear to auscultation bilaterally, equal, unlabored Cardiovascular: Regular rate/rhythm, Normal S1 S2, no edema Gastrointestinal: Normal bowel sounds, No tenderness Musculoskeletal: No tenderness Integumentary: No rashes Neurological: Normal gait, Normal speech, Normal strength at 5/5 x4 extr, Normal tone, Normal affect Assessment & Plan - Problems (Diagnosis) Non-ST elevated myocardial infarction (non-STEMI) Current Visit: Yes Status: Acute Hypertensive urgency As needed antihypertensive - Plan -High-sensitivity troponin, 315, 247 -BNP 430, -Cardiology consultation -Echocardiogram and stress test per cardiology recommendation -Repeat EKG -Work-up for other etiologies of cardiac chest pain if troponins remain negative -Lipid profile -[employer] regarding modifying risk for cardiac disease -Lovenox 1 mg/kg Hypokalemia Trend electrolytes replace as needed - Advance Directives Does patient have a Living Will: No Does patient have a Durable POA for Healthcare: No <Katelyn Montenegro - Last Filed: 04/29/24 11:42> Chart has been reviewed. Events of the last 24 hours have been noted. Case discussed with PERICO. I performed a substantial part of the MDM during this patient's care today. I personally made or approved the documented management plan and acknowledge its risk of complications. I agree with the findings and documentation provided in the PERICO's notes See physician progress note for more details. <Antonella Carrasco - Last Filed: 05/01/24 03:46>
[2024-04-29] MEDS: ASPIRIN EC 81 MG TAB PO SCH (08:19)
[2024-04-29] MEDS: POTASS/SODIUM PHOSPHATE 1 PKT POWD.PACK PO SCH (08:19)
[2024-04-29] MEDS: ENOXAPARIN 80 MG/0.8 ML SQ SCH (08:19)
[2024-04-29] MEDS ORDERED: CODEINE 30MG/APAP 300MG TAB PO PRN (11:43)
--- NOTE | 2024-04-29 14:32 | P.PN ---
Subjective Date of Service: 04/29/24 Patient still having some issues with his vision at times. Plan to do an MRI in the morning. As troponins are elevated plan to do a cardiac catheterization as well. Review of Systems 10-point ROS is otherwise unremarkable Physical Examination - Vital Signs Temperature: 98 F Blood Pressure: 140/80 Pulse: 80 Respirations: 18 Pulse Ox (%): 95 - Physical Exam General: Alert, In no apparent distress, Oriented x3 HEENT: Atraumatic, PERRLA, EOMI Neck: Supple, JVD not distended Respiratory: Clear to auscultation bilaterally, Normal air movement Cardiovascular: Regular rate/rhythm, Normal S1 S2 Gastrointestinal: Normal bowel sounds, No tenderness Musculoskeletal: No tenderness Integumentary: No rashes Neurological: Normal speech, Normal tone, Normal affect Lymphatics: No axilla or inguinal lymphadenopathy - Studies Medications List Reviewed: Yes Assessment & Plan - Problems (Diagnosis) (1) Non-ST elevated myocardial infarction (non-STEMI) Status: Acute (2) Blurred vision Status: Acute (3) Dizziness Status: Acute (4) Ataxia Status: Acute - Plan -High-sensitivity troponin -Cardiology consultation appreciated -Echocardiogram and cardiac catheterization in a.m. -Repeat EKG -MRI/MRA pending -Lipid profile -Alarm Technician regarding modifying risk for cardiac disease -Antiplatelet/statin Discharge Plan: Home Plan to discharge in: Greater than 2 days - Advance Directives Does patient have a Living Will: No Does patient have a Durable POA for Healthcare: No - Code Status/Comfort Care Code Status: Full Code Critical Care: No Time Spent Managing PTS Care (In Minutes): 35
--- NOTE | 2024-04-29 14:47 | P.CNS ---
Date of Consult: 04/29/24 Chief Complaint: Uncontrolled hypertension/blurred vision/vertigo History of Present Illness: Patient with PMH of HTN, presented with fatigue, feeling weak, inbalance, that has been going on for a while, denies any other symptoms, found to have high troponin. Allergies No Known Allergies Allergy (Unverified 04/28/24 18:08) Home Medications: NK [No Home Meds] 04/28/24 - Past Medical/Surgical History Diabetic: No -: Hypertension -: Basal cell carcinoma -: Resection of basal cell -: head cancer removal - Family History Father Family History: Reviewed- Non-Contributory - Social History Smoking Status: Current some day smoker Alcohol use: No CD- Drugs: No Caffeine use: Yes Place of Residence: Home Review of Systems 10-point ROS is otherwise unremarkable Physical Examination Temp Pulse Resp BP Pulse Ox 98 F 80 18 140/80 95 04/29/24 14:32 04/29/24 14:32 04/29/24 14:32 04/29/24 14:32 04/29/24 14:32 General: Alert, In no apparent distress HEENT: Atraumatic, PERRLA, Mucous membr. moist/pink, EOMI, Sclerae nonicteric Neck: Supple, 2+ carotid pulse no bruit, No LAD, Without JVD or thyroid abnormality Respiratory: Clear to auscultation bilaterally, Normal air movement Cardiovascular: Regular rate/rhythm, Normal S1 S2 Gastrointestinal: Normal bowel sounds, No tenderness Musculoskeletal: No tenderness Integumentary: No rashes Neurological: Normal gait, Normal speech, Normal tone, Normal affect Lymphatics: No axilla or inguinal lymphadenopathy - Problems (1) HTN (hypertension) Current Visit: Yes Status: Acute Plan: continue lopressor 25 mg po BID (2) Dizziness Current Visit: Yes Status: Acute Plan: get carotid duplex (3) Non-ST elevated myocardial infarction (non-STEMI) Current Visit: Yes Status: Acute Plan: elevated troponin with fatigue and weakness, plan is for coronary angiogram in am. please get echo. continue ASA 81 mg daily Continue Lipitor 40 mg daily.
--- NOTE | 2024-04-30 07:42 | P.PN ---
Subjective Date of Service: 04/30/24 Chief Complaint: Uncontrolled hypertension/blurred vision/vertigo Subjective: No new changes (denies CP, SOB, vision changes this am), No C/O voiced <Aspen Herronlen - Last Filed: 04/30/24 07:42> Date of Service: 04/30/24 <Ney Wang C - Last Filed: 04/30/24 17:59> Review of Systems 10-point ROS is otherwise unremarkable General: As per HPI Eyes: As per HPI Cardiovascular: As per HPI Neurological: As per HPI <Aspen Herronlen - Last Filed: 04/30/24 07:42> Physical Examination - Vital Signs Temperature: 97.3 F Blood Pressure: 148/87 Pulse: 80 Respirations: 16 Pulse Ox (%): 98 - Physical Exam General: Alert, In no apparent distress, Oriented x3 HEENT: Atraumatic, Normocephalic, Mucous membr. moist/pink Neck: Supple, JVD not distended Respiratory: Clear to auscultation bilaterally Cardiovascular: Normal pulses, Regular rate/rhythm, Normal S1 S2 Capillary refill: <2 Seconds Gastrointestinal: Normal bowel sounds, Soft and benign Musculoskeletal: No clubbing, No swelling Integumentary: No rashes Neurological: Normal speech, Normal tone, Normal affect Lymphatics: No axilla or inguinal lymphadenopathy External genitalia: Deferred Rectal: Deferred - Studies Medications List Reviewed: Yes <Aspen Herronlen - Last Filed: 04/30/24 07:42> Assessment And Plan - Plan - Problems (Diagnosis) Non-ST elevated myocardial infarction (non-STEMI) Current Visit: Yes Status: Acute Hypertensive urgency As needed antihypertensive - Plan -High-sensitivity troponin, 315, 247 -BNP 430, -Cardiology consultation - 04/30/24 Dr. Irvin bay, Pt to have [facility] today -Echocardiogram and stress test per cardiology recommendation -Repeat EKG -Work-up for other etiologies of cardiac chest pain if troponins remain negative -Lipid profile -Outdoor Recreation Specialist regarding modifying risk for cardiac disease -Lovenox 1 mg/kg - held 04/30/24 for LHC 04/30/24 Denies s/s this am. Awaiting [facility] this am. NPO since Midnight Hypokalemia Trend electrolytes replace as needed - Advance Directives Does patient have a Living Will: No Does patient have a Durable POA for Healthcare: No Discharge Plan: Home Plan to discharge in: 24 Hours <Aspen Herron - Last Filed: 04/30/24 07:42> - Plan Pt seen and examined. I agree with [facility] note by the FRONT DESK ATTENDANT. Pt is waiting for cardiac cath. Holding Lovenox for the cardiac cath. Continue cardiac meds. <Ney Wang - Last Filed: 04/30/24 17:59>
[2024-04-30 08:23] LABS: Absolute Eosinophils 0.2 K/uL (0-0.5); Absolute Lymphocytes (CBC) 2.2 K/uL (0.7-4.9); Absolute Monocytes 0.8 K/uL (0.1-1.3); Absolute Neutrophil 2.8 K/uL (1.8-8.0); Basophils % 0.4 % (0-1.3); Eosinophils % 2.9 % (0-4.4); Hematocrit 47.7 % (39.6-49.0); Hemoglobin 15.8 g/dL (13.6-17.9); Lymphocytes % 36.7 % (15.3-44.8); MCH 28.7 pg (27.0-35.0); MCV 86.9 fL (80-100); MPV 9.5 fL (7.6-11.3); Monocytes % 13.8 % (3.3-12.3); Neutrophils % 46.2 % (41.7-73.7); Nucleated Red Blood Cells % 0.1 % (0-0); Platelets 185 thou/uL (152-406); RBC Red Blood Cell Count 5.49 M/uL (4.33-5.43); Red Cell Distribution Width 14.8 % (12.1-15.2)
--- NOTE | 2024-04-30 08:47 | RAD REPORT ---
EXAM DESCRIPTION: MRI - Brain Wo Cont - 04/30/2024 8:35 am CLINICAL HISTORY: Basilar artery syndrome COMPARISON: MRA Head Wo Cont dated 04/30/2024 TECHNIQUE: Sagittal T1-weighted images were obtained along with PD/heavily T2-weighted and T2-FLAIR images. Axial DWI and ADC mapping sequences were also obtained along with coronal heavily T2-weighted images were obtained. FINDINGS: No intracranial hemorrhage, mass or acute infarction. There is no edema or shift of midlin e structures. No extra-axial fluid collections. Signal voids are seen as a normal finding in the yesika r intracranial vessels. No significant white matter disease. Mastoid air cells and paranasal sinuses are clear. IMPRESSION: No acute intracranial abnormality. No evidence of acute infarct.
[2024-04-30 08:48] LABS: Anion Gap 6.2 mEq/L (5.0-15.0); Magnesium 2.3 mg/dL (1.6-2.4); Potassium 4.2 mEq/L (3.5-5.1)
[2024-04-30 08:49] LABS: Troponin High Sensitivity 83.5 pg/mL (<58.9)
[2024-04-30] MEDS: NA CHLORIDE 0.9% 500 ML ONE (08:53)
[2024-04-30] MEDS ORDERED: HEPA 1000U/500MLS 2,000 UNIT/1,000 ML BAG IV ONE (08:56)
[2024-04-30] MEDS ORDERED: LIDOCAINE 1% 20 ML MDV ONE (08:57)
--- NOTE | 2024-04-30 09:10 | RAD REPORT ---
EXAM DESCRIPTION: MRI - MRA Head Wo Cont - 04/30/2024 8:33 am CLINICAL HISTORY: Basilar artery syndrome COMPARISON: Head Brain Wo Cont dated 04/28/2024; Brain Wo Cont dated 04/30/2024; Angio Aorta For Disse ction dated 04/28/2024 FINDINGS: 3D noncontrast [id number] MR angiography of the [place] was performed. Short-segment left M2 segment middle cerebral artery filling defect which is identified on image 52, series 8. This could represent a short-segment occlusion. The right P2 STEWARD/STEWARDESS NIGHT is irregular and may have a short-segment occlusion as well. Right dominant vertebral artery. The left vertebral artery likely terminates in a branch of the PICA. The basilar artery is widely patent. The visualized dural venous sinuses appear patent. IMPRESSION: Left M2 segment MCA filling defect and right P2 STEWARD/STEWARDESS NIGHT short segment apparent occlusion. On the contemporaneous MRI, no acute or prior intracranial infarcts identified. The findings could be a rtifact as result of [id number] technique though an acute occlusion is within the differential. T he basilar artery is widely patent. Consider CTA head to confirm. Conveyed to Dr. Carrasco by Dr. El at 0905 on 04/30/24
[2024-04-30] MEDS ORDERED: ATROPINE SULF 1 MG/10 ML SYR IV ONE (09:13)
[2024-04-30] MEDS ORDERED: TICAGRELOR 90 MG TABLET PO ONE (09:13)
[2024-04-30] MEDS ORDERED: HEPARIN 10,000 UNIT/10 ML VIAL IV ONE (09:13)
[2024-04-30] MEDS ORDERED: FENTANYL CITR 100 MCG/2 ML ONE (09:13)
[2024-04-30] MEDS ORDERED: HEPARIN 5000 UNIT/ML 1 ML VIAL ONE (09:13)
[2024-04-30] MEDS ORDERED: ASPIRIN 325 MG TAB ONE (09:14)
[2024-04-30] MEDS ORDERED: MIDAZOLAM HCL 2 MG/2 ML INJ ONE (09:14)
--- NOTE | 2024-04-30 11:32 | P.DS ---
Admission Date: 04/28/24 Discharge Date: 04/30/24 Reason for Admission: Uncontrolled hypertension/blurred vision/vertigo Consultations: Dr. Bryan Procedures: Left heart catheterization Brief History of Present Illness: Patient is a 59-year-old gentleman comes to the hospital because his blood pressure has been uncontrolled. Patient also been having vertigo and diplopia. Patient presented to the emergency room for further evaluation. In the emergency room, patient was found to have an elevated troponin. Patient was admitted to the hospital for further evaluation. Otherwise, patient is fairly healthy. Patient denies any significant medical history. Patient had skin cancer because of being out in the sun. Otherwise, patient denies any other complaints. He is really concerned about his clinical symptoms. He has been fairly healthy until his vision symptoms started bothering him. The symptoms tend to wax and wane and he also noticed that he is a little ataxic when they present. At this time, I will admit the patient to the hospital for further evaluation. Patient denies any chest pain. Hospital Course: Mr. Bustamante has done well over the course of his admission. His blood pressure is higher than his norm in the 120s at 148/87, however this is down from his measurements in the emergency department when his systolic blood pressure was in the 200s. Dr. Bryan took him for left heart catheterization today, from a cardiology standpoint, he can be discharged to home to follow up outpatient for CABG evaluation secondary to 3 vessel coronary artery disease. We are awaiting an Echo and as MRA showed some abnormal signal in left MCA and right CRIMINAL INVESTIGATOR, a CTA of the brain. CTA brain "IMPRESSION: No significant flow abnormality is detected." Will need to continue aggressive medical management until follow up with Dr. Bryan. <Aspen eHrron - Last Filed: 04/30/24 15:03> Admission Date: 04/28/24 Discharge Date: 04/30/24 Hospital Course: Pt seen and examined. I agree with the note by the CLINIC COORDINATOR. Pt had cardiac cath. It shows 3 vessel coronary artery disease. Pt will f/u with endless belt finisher on outpt for CABG evaluation. Imaging studies are negative for evidence of stroke. Ok to discharge pt. <Ney Wang - Last Filed: 04/30/24 16:51> Disposition: ROUTINE DISCHARGE Discharge Condition: GOOD Vital Signs/Physical Exam: Temp Pulse Resp BP Pulse Ox 97.5 F 71 16 129/76 96 04/30/24 08:40 04/30/24 08:40 04/30/24 08:40 04/30/24 08:40 04/30/24 08:00 General: Alert, In no apparent distress, Oriented x3 HEENT: Atraumatic, Normocephalic Neck: Supple Respiratory: Normal air movement Cardiovascular: No edema, Normal pulses Capillary refill: <2 Seconds Gastrointestinal: Normal bowel sounds, Soft and benign Musculoskeletal: No clubbing, No swelling Integumentary: No rashes Neurological: Normal speech, Normal tone Lymphatics: No axilla or inguinal lymphadenopathy External genitalia: Deferred Rectal: Deferred Laboratory Data at Discharge: WBC 6.10 thou/uL (4.3-10.9) 04/30/24 06:59 Hgb 15.8 g/dL (13.6-17.9) 04/30/24 06:59 Hct 47.7 % (39.6-49.0) 04/30/24 06:59 Plt Count 185 thou/uL (152-406) 04/30/24 06:59 PT 12.4 SECONDS (9.4-12.5) 04/28/24 13:48 INR 1.13 04/28/24 13:48 Sodium 136 mEq/L (136-145) 04/30/24 06:59 Potassium 4.2 mEq/L (3.5-5.1) 04/30/24 06:59 BUN 13 mg/dL (7-18) 04/30/24 06:59 Creatinine 0.93 mg/dL (0.70-1.30) 04/30/24 06:59 Glucose 101 mg/dL (74-106) 04/30/24 06:59 Phosphorus 2.1 mg/dL (2.5-4.9) L 04/29/24 05:42 Magnesium 2.3 mg/dL (1.6-2.4) 04/30/24 06:59 Total Bilirubin 0.6 mg/dL (0.2-1.0) 04/29/24 05:42 AST 13 U/L (15-37) L 04/29/24 05:42 ALT 24 U/L (16-61) 04/29/24 05:42 Alkaline Phosphatase 63 U/L (45-117) 04/29/24 05:42 Triglycerides 108 mg/dL (<150) 04/29/24 05:42 Cholesterol 123 mg/dL (<200) 04/29/24 05:42 HDL Cholesterol 37 mg/dL (40-60) L 04/29/24 05:42 Cholesterol/HDL Ratio 3.32 04/29/24 05:42 <Herron,Aspen Tommy - Last Filed: 04/30/24 15:03> Vital Signs/Physical Exam: Temp Pulse Resp BP Pulse Ox 98.5 F 73 20 149/69 H 96 04/30/24 14:25 04/30/24 14:25 04/30/24 14:25 04/30/24 14:25 04/30/24 14:25 Laboratory Data at Discharge: WBC 6.10 thou/uL (4.3-10.9) 04/30/24 06:59 Hgb 15.8 g/dL (13.6-17.9) 04/30/24 06:59 Hct 47.7 % (39.6-49.0) 04/30/24 06:59 Plt Count 185 thou/uL (152-406) 04/30/24 06:59 PT 12.4 SECONDS (9.4-12.5) 04/28/24 13:48 INR 1.13 04/28/24 13:48 Sodium 136 mEq/L (136-145) 04/30/24 06:59 Potassium 4.2 mEq/L (3.5-5.1) 04/30/24 06:59 BUN 13 mg/dL (7-18) 04/30/24 06:59 Creatinine 0.93 mg/dL (0.70-1.30) 04/30/24 06:59 Glucose 101 mg/dL (74-106) 04/30/24 06:59 Phosphorus 2.1 mg/dL (2.5-4.9) L 04/29/24 05:42 Magnesium 2.3 mg/dL (1.6-2.4) 04/30/24 06:59 Total Bilirubin 0.6 mg/dL (0.2-1.0) 04/29/24 05:42 AST 13 U/L (15-37) L 04/29/24 05:42 ALT 24 U/L (16-61) 04/29/24 05:42 Alkaline Phosphatase 63 U/L (45-117) 04/29/24 05:42 Triglycerides 108 mg/dL (<150) 04/29/24 05:42 Cholesterol 123 mg/dL (<200) 04/29/24 05:42 HDL Cholesterol 37 mg/dL (40-60) L 04/29/24 05:42 Cholesterol/HDL Ratio 3.32 04/29/24 05:42 <Ney Wang - Last Filed: 04/30/24 16:51> Diet: AHA Activity: Ad lakhwinder <Aspen Herronlen - Last Filed: 04/30/24 15:03> <Ney Wang - Last Filed: 04/30/24 16:51> Home Medications: Aspirin [Aspirin EC 81 MG] 81 mg PO DAILY #90 tab 04/30/24 Atorvastatin Calcium 40 mg PO BEDTIME #90 tab 04/30/24 Metoprolol Tartrate [Lopressor] 25 mg PO BID #180 tab 04/30/24 New Medications: Aspirin [Aspirin EC 81 MG] 81 mg PO DAILY #90 tab Atorvastatin Calcium 40 mg PO BEDTIME #90 tab Metoprolol Tartrate [Lopressor] 25 mg PO BID #180 tab Physician Discharge Instructions: Mr. Bustamante has done well over the course of his admission. His blood pressure is higher than his norm in the 120s at 148/87, however this is down from his measurements in the emergency department when his systolic blood pressure was in the 200s. Dr. Bryan took him for left heart catheterization today, from a cardiology standpoint, he can be discharged to home to follow up outpatient for CABG evaluation secondary to 3 vessel coronary artery disease. We are awaiting an Echo and as MRA showed some abnormal signal in left MCA and right CRIMINAL INVESTIGATOR, a CTA of the brain. CTA brain "IMPRESSION: No significant flow abnormality is detected." Will need to continue aggressive medical management until follow up with Dr. Bryan. Okay to DC IV and DC home Follow-up with primary care provider in 1 to 2 weeks Follow-up with cardiology in 1 to 2-weeks Please call the inpatient unit for any questions or concerns regarding hospital stay Return to the ER for worsening symptoms Followup: Sergo Bryan MD [ACTIVE - CAN ADMIT] - Fish Perez MD [Primary Care Provider] -
--- NOTE | 2024-04-30 12:11 | P.PN ---
Subjective Date of Service: 04/30/24 Chief Complaint: Uncontrolled hypertension/blurred vision/vertigo Subjective: No new changes, No C/O voiced, Tolerating diet, Ambulating, Improving Review of Systems 10-point ROS is otherwise unremarkable Physical Examination - Vital Signs Temperature: 97.5 F Blood Pressure: 148/86 Pulse: 70 Respirations: 16 Pulse Ox (%): 96 - Physical Exam General: Alert, In no apparent distress HEENT: Atraumatic, PERRLA, EOMI Neck: Supple, JVD not distended Respiratory: Clear to auscultation bilaterally, Normal air movement Cardiovascular: Regular rate/rhythm, Normal S1 S2 Gastrointestinal: Normal bowel sounds, No tenderness Musculoskeletal: No tenderness Integumentary: No rashes Neurological: Normal speech, Normal tone, Normal affect Lymphatics: No axilla or inguinal lymphadenopathy - Studies Medications List Reviewed: Yes Assessment And Plan - Current Problems (Diagnosis) (1) HTN (hypertension) Current Visit: Yes Status: Acute Plan: continue lopressor 25 mg po BID (2) Dizziness Current Visit: Yes Status: Acute Plan: get carotid duplex (3) Non-ST elevated myocardial infarction (non-STEMI) Current Visit: Yes Status: Acute Plan: Coronary angiogram shows 3 vessel CAD, plan is for outpatient CABG evaluation. please get echo. continue ASA 81 mg daily Continue Lipitor 40 mg daily.
--- NOTE | 2024-04-30 13:00 | OP ---
Date of Procedure: 04/30/2024 Surgeon: Sergo Bryan Procedure Performed: Selective coronary angiogram. Indication: Non-STEMI. Access: Right radial, closed by TR band. Complications: None. Estimated Blood Loss: Less than 50 cc. Sedation Time: 20 minutes via 1 of Versed and 25 of fentanyl. Description Of Procedure: After risks, and benefits, and alternatives were explained to the patient, patient agreed to proceed with the procedure and signed informed consent. The patient was brought b [facility] to the orthodontic lab technician, prepped and draped in sterile fashion. Time-out was performed. Sedation was ad ministered. Right radial ultrasound-guided micropuncture technique, access was obtained. Next, Tige r 4.0 catheter was advanced over a J-wire to the aortic root. Selective coronary angiogram was done of the left and right coronary systems. Next, catheter was pulled back to the left subclavian artery and angiogram of the LAY was done. At the end of the procedure, catheter was removed. Sheath was removed and TR band applied. Hemostasis was achieved, and patient was moved back to recovery room in stable condition. Findings: 1.Left main; normal. 2.LAD; proximal to mid diffuse 60% to 70% disease, then mild LI, and it gives collaterals to the OM and RPDA. 3.Left circ; proximal mild luminal irregularities, gives large OM1, then mid occluded. 4.OM2; large, gets wlxo-fw-[id number] collaterals. 5.RCA; proximal occluded, gets kbdi-oc-kinng collaterals into the large RPDA. Assessment And Plan: 1.Significant LAD, OM2, RPDA disease. Plan is to consult CT Surgery to evaluate for a bypass. 2.Continue aggressive medical treatment for CAD. KIM/MODL Voice ID: [id number] Report ID: [id number]
[2024-04-30 13:52] VITALS: O2SAT 99
--- NOTE | 2024-04-30 14:19 | EKG ---
Test Date: 2024-04-28 Test Time: 13:24:51 Religion Professor: ZHEN MEASUREMENT RESULTS: Intervals: Rate: 130 CA: 128 QRSD: 86 QT: 302 QTc: 444 [place]: P: 79 CA: 128 QRS: 92 T: 50 INTERPRETIVE STATEMENTS: Sinus tachycardia Biatrial enlargement Rightward axis Nonspecific ST abnormality Abnormal ECG Compared to ECG 01/12/2019 17:02:20 Right-axis deviation now present ST (T wave) deviation now present Sinus rhythm no longer present Electronically Signed On 04-30-24 14:15:14 CDT by Sharath Guthrie
[2024-04-30] MEDS: ACETYLCYST 20% 800 MG/4 ML VIAL PO ONE (14:23)
--- NOTE | 2024-04-30 14:40 | ECHO ---
HEIGHT: 5 ft 9 in WEIGHT: 175 lb 0 oz DATE OF STUDY: 04/30/[address]: Antonella Carrasco MD 2-DIMENSIONAL: YES M.MODE: YES DOPPLER: YES COLOR FLOW: YES TDS: YES PORTABLE: YES DEFINITY: BUBBLE STUDY: DIAGNOSIS: ACUTE CORONARY SYNDROME CARDIAC HISTORY: CATHERIZATION: YES SURGERY: NO PROSTHETIC VALVE: NO PACEMAKER: NO MEASUREMENTS (cm) DIASTOLIC (NORMALS) SYSTOLIC (NORMALS) IVSd 1.3 (0.6-1.2) LA Diam 2.6 (1.9-4.0) LVEF 55-60% LVIDd 4.1 (3.5-5.7) LVIDs 3.1 (2.0-3.5) %FS % LVPWd 1.3 (0.6-1.2) Ao Diam 1.9 (2.0-3.7) 2 DIMENSIONAL ASSESSMENT: RIGHT ATRIUM: NORMAL LEFT ATRIUM: NORMAL RIGHT VENTRICLE: NORMAL LEFT VENTRICLE: NORMAL TRICUSPID VALVE: MILD TRICUSPID REGURGITATION MITRAL VALVE: MILD MITRAL REGURGITATION PULMONIC VALVE: NORMAL AORTIC VALVE: CALCIFIED, NO AORTIC STENOSIS PERICARDIAL EFFUSION: NONE AORTIC ROOT: NORMAL LEFT VENTRICULAR WALL MOTION: NORMAL DOPPLER/COLOR FLOW: SEE BELOW COMMENTS: 1. NORMAL LEFT VENTRICULAR EJECTION FRACTION 55-60% 2. GRADE I DIASTOLIC DYSFUNCTION 3. MILD MITRAL REGURGITATION 4. MILD TRICUSPID REGURGITATION TECHNOLOGIST: MARIA R MATTHEWS
--- NOTE | 2024-04-30 14:44 | RAD REPORT ---
EXAM DESCRIPTION: CT - Head angio - 04/30/2024 2:05 pm CLINICAL HISTORY: r/o CVA Headache, drowsiness, CVA symptomology COMPARISON: Head Brain Wo Cont dated 04/28/2024; Brain Wo Cont dated 04/30/2024; MRA Head Wo Cont dated 04/30/2024; Chest Single View dated 04/28/2024 TECHNIQUE: CT angiography of the head was performed with MIPs. All CT scans are performed using dose optimization technique as appropriate and may include automated exposure control or mA/KV adjustment according to patient size. FINDINGS: No evidence of large vessel occlusion. No evidence of aneurysm is detected. No flow-limiti ng stenosis or vascular malformation identified. Right vertebral artery is dominant. Left vertebral artery is very diminutive. The visualized dural venous sinuses are patent. IMPRESSION: No significant flow abnormality is detected.
[2024-05-01 03:50] VITALS: BP 140/80; TEMP 98
== END 2024-04-30 16:03 | disposition home or self-care (01) | DRG 282 ==
LOC: ER 13:07 → 2ND 16:49
PROVIDERS: ADMIT Hospitalist; ATTEND Hospitalist
PROC: 4A023N7 Measurement of Cardiac Sampling and Pressure, Left Heart, Percutaneous Approach (ICD-10-PCS; principal; 2024-04-30)
PROC: B2111ZZ Fluoroscopy of Multiple Coronary Arteries using Low Osmolar Contrast (ICD-10-PCS; 2024-04-30)
DX: I21.4 Non-ST elevation (NSTEMI) myocardial infarction (principal); I10 Essential (primary) hypertension; E87.6 Hypokalemia; I16.0 Hypertensive urgency; I25.10 Atherosclerotic heart disease of native coronary artery without angina pectoris; F17.210 Nicotine dependence, cigarettes, uncomplicated; R27.0 Ataxia, unspecified; Z79.82 Long term (current) use of aspirin; Z90.49 Acquired absence of other specified parts of digestive tract; Z85.828 Personal history of other malignant neoplasm of skin; Z79.899 Other long term (current) drug therapy
CPT/HCPCS: 36415; 70450; 70496; 70544; 70551; 71045; 71275; 74175; 76937; 80048; 80053; 80061; 80076; 83735; 83880; 84100; 84484; 85025; 85610; 93005; 93306; 93454; 96372; 99152; 99153; 99285; C1893; J0461; J1644; J2001; J2250; J3010; J7040; Q9966; Q9967